=== PATIENT | male | born 1945 | race Caucasian/White ===

== ENCOUNTER 2021-10-24 07:07 | Day surgery (SDC) | payer MEDICARE, BC ==
[2021-10-18 10:40] LABS: CLARITY,URINE CLEAR (Clear); COLOR,URINE YELLOW (Yellow); GLUCOSE, URINE NEGATIVE (Neg); KETONES,URINE NEGATIVE (Neg); LEUKOCYTE ESTERASE ,URINE TRACE (Neg); NITRITES, URINE NEGATIVE (Neg); OCCULT BLOOD,URINE MODERATE (Neg); PROTEIN,URINE NEGATIVE (Neg); UROBILINOGEN,URINE 0.2 E.U/dL (0.2-1.0)
[2021-10-18 10:42] LABS: BASOPHILS # (AUTO) 0.2 X10'3 (0-0.2); BASOPHILS % (AUTO) 1.4 % (0-1); EOSINOPHILS # (AUTO) 0.3 X10'3 (0-0.9); LYMPHOCYTES # (AUTO) 1.9 X10'3 (1.1-4.8); LYMPHOCYTES % (AUTO) 17.9 % (21-51); MEAN CORPUSCULAR HGB CONC 33.7 g/dL (33.0-36.5); MEAN PLATELET VOLUME 7.5 FL (7.4-10.4); MONOCYTES # (AUTO) 0.7 X10'3 (0-0.9); MONOCYTES % (AUTO) 6.9 % (2-12); NEUTROPHILS # (AUTO) 7.5 X10'3 (1.8-7.7); NEUTROPHILS % (AUTO) 70.8 % (42-75); PRE OP HEMATOCRIT 46.1 % (42.0-52.0); PRE OP HEMOGLOBIN 15.6 g/dL (14.0-17.9); PRE OP PLATELET COUNT 248 X10'3 (140-440); RED BLOOD COUNT 5.02 X10'6 (4.70-6.10)
[2021-10-18 10:54] LABS: UA COLLECTION TYPE CLN CATCH MIDSTREAM
[2021-10-18 10:56] LABS: BACTERIA,URINE FEW /HPF (Neg); MUCUS STRANDS NONE SEEN /LPF (Neg); RBC,URINE 20-50 /HPF (0-2); SQUAMOUS EPITHELIAL CELL,UR FEW /LPF (FEW)
[2021-10-18 10:56] LABS: ALBUMIN 3.8 G/DL (3.4-5.0); ALKALINE PHOSPHATASE 77 IU/L (46-116); BLOOD UREA NITROGEN 23 MG/DL (7-18); BUN/CREATININE RATIO 23.7 (5.4-32.0); CALCIUM 9.1 MG/DL (8.5-10.1); CHLORIDE 101 MMOL/L (99-107); CREATININE 0.97 MG/DL (0.60-1.10); PRE OP ALT 26 U/L (30-65); PRE OP ANION GAP 11 (8-16); PRE OP AST 18 U/L (10-37); PRE OP BILIRUB, TOTAL 1.8 MG/DL (0.0-1.0); PRE OP GLUCOSE 96 MG/DL (70-104); PRE OP SODIUM 142 MMOL/L (135-145); TOTAL CARBON DIOXIDE 30.5 MMOL/L (24-32); TOTAL PROTEIN 7.6 G/DL (6.4-8.2); eGFR 75 ML/MIN
[~2021-10-24] VITALS: Ht 167.6 cm; Wt 97.1 kg
[~2021-10-24 07:07] MED LIST: ASCO500C17 PO; ASPI81TA52 PO; ATOR10TA70 PO; CHOL400T57 PO; FLUT16SP26; GUAI1TBM19 PO; MAGN250T11 PO; METH-339 PO; MV-M1CAP15 PO; PANT40TA54 PO; POLY17PO10 PO; SILD100T PO; SIME125T7 PO; VALS1TAB81 PO; VERA240C3 PO; VITA400T10 PO; ceFAZolin inj. 2,000 MG in dextrose 5%-water 100 ML IV ONE; claritin; famotidine 20mg tablet PO ONE; ringers solution, lacted 1,000 ML IV SCH; testosterone
[2021-10-24] MEDS ORDERED: BUPIVAcaine/PF 2.5 mg/ml (0.25%) 30ml vial ONE (07:13)
[2021-10-24] MEDS ORDERED: LIDOcaine 1% W/epiNEPHrine 1:100,000 20ml vial ONE (07:13)
[2021-10-24 07:15] VITALS: BP 162/66
[2021-10-24] MEDS ORDERED: fentaNYL/PF 50MCG/1 ML 2ML syringe ONE ×2 (11:20→11:58)
[2021-10-24] MEDS ORDERED: midazolam 1 mg/ML 2ml injection ONE (11:20)
[2021-10-24] MEDS ORDERED: propofol inj 20 ML IV ONE ×2 (11:44→12:13)
[2021-10-24 12:20] VITALS: BP 136/54
--- NOTE | 2021-10-24 12:20 | NUR ---
Received from OR via [facility] , accompanied by Anesthesiologist TIANNA and report given by Anesthesiolgist. PATIENT WITH 20G PIV IN RIGHT UE RUNING LR AT 100. INCISION/ DRESSING TO RIGHT LATERAL SKULL IS CDI. NO DRAINAGE PRESNET. DENIES PAIN AT THIS TIME. VSS Addendum: 10/24/21 at 1238 by Jose Manuel Diana RN, RN Amended: Links added.
[2021-10-24 12:30] VITALS: BP 132/54
[2021-10-24 12:40] VITALS: BP 132/51
[2021-10-24 12:50] VITALS: BP 138/64
--- NOTE | 2021-10-24 13:15 | NUR ---
ALL DISCHARGE CRITERIA HAS BEEN MET. VSS, PAIN AT A TOLERABLE LEVEL, ABLE TO SAFELY AMBULATE AND TRANSFER SELF. IV TAKEN OUT WITHOUT ANY COMPLICATIONS. ALL DISCHARGE INSTRUCTIONS COVERED WITH PATIENT AND ALL QUESTIONS ANSWERED. PATIENT TAKEN OUT VIA WHEELCHAIR TO PERSONAL VEHICLE WHERE FAMILY/FRIEND DROVE PATIENT HOME. Addendum: 10/24/21 at 1316 by Jose Manuel Diana RN, RN Amended: Links added.
== END 2021-10-24 13:15 | disposition home or self-care (01) ==
LOC: PAS 07:07
PROVIDERS: ATTEND Surgery
DX: R51.9 Headache, unspecified (principal); J44.9 Chronic obstructive pulmonary disease, unspecified; I10 Essential (primary) hypertension; Z87.442 Personal history of urinary calculi; D64.9 Anemia, unspecified; K21.9 Gastro-esophageal reflux disease without esophagitis; Z79.899 Other long term (current) drug therapy; Z87.891 Personal history of nicotine dependence; Z98.890 Other specified postprocedural states; Z88.8 Allergy status to other drugs, medicaments and biological substances
CPT/HCPCS: 36415; 37609; 80053; 81001; 82948; 85025; 87088; 87811; 93005; A6258; J0690; J2250; J2704; J3010; J3490; J7060; J7120; Z7506; Z7512; 88305; 88313; A4215; A7000